=== PATIENT | male | born 1990 | race African-American/Black ===

== ENCOUNTER 2022-01-22 12:37 | Emergency (ER) | payer MEDICAID, OTHER ==
[~2022-01-22] VITALS: Ht 162.6 cm; Wt 61.2 kg
[2022-01-22 12:42] VITALS: BP 141/90
--- NOTE | 2022-01-22 13:05 | NUR ---
31 y/o Male BIB self for c/o N/V x 4 days. Pt states he smokes marijuana on a regular basis and stopped 4 days ago. AOX4, able to make needs known. Denies CP/SOB and diarrhea. Abd is soft and non-tender. + BS heard x4. Denies any blood in emesis. PmHx: Denies Allergies NKA Home meds: Denies
[2022-01-22] MEDS ORDERED: NACL 0.9% 1,000 ML IV ONE ×2 (13:10→14:25)
[2022-01-22] MEDS ORDERED: ONDANSETRON 4 MG/2 ML VIAL IVP ONE (13:10)
--- NOTE | 2022-01-22 13:25 | NUR ---
Pt encouraged to provide urine sample, pt states he is unable at this time and will try again once his IVF are completed.
[2022-01-22 13:27] LABS: BASOPHILS % (AUTO) 0.6 % (0.0-2.0); EOSINOPHILS % (AUTO) 0.1 % (0.0-4.0); HEMATOCRIT 48.8 % (36-52); HEMOGLOBIN 17.3 g/dL (12.0-18.0); LYMPHOCYTES # (AUTO) 2.3 K/uL (2.0-11.5); LYMPHOCYTES % (AUTO) 27.9 % (20.5-51.1); MEAN CORPUSCULAR HEMOGLOBIN 31 pg (27-31); MEAN CORPUSCULAR HGB CONC 35 g/dL (33-37); MEAN CORPUSCULAR VOLUME 86.3 fL (80-94); MONOCYTES # (AUTO) 0.8 K/uL (0.8-1.0); MONOCYTES % (AUTO) 9.4 % (1.7-9.3); PLATELET COUNT (AUTO) 184 K/uL (140-450); RED BLOOD CELL COUNT(AUTO) 5.66 MIL/uL (4.20-6.10); WHITE BLOOD COUNT (AUTO) 8.1 K/uL (4.8-10.8)
[2022-01-22 14:07] LABS: ALBUMIN 5.1 g/dL (3.4-5.0); ANION GAP 20.6 (8-16); CREATININE 1.9 mg/dL (0.6-1.3); POTASSIUM 3.6 mmol/L (3.5-5.1)
[2022-01-22 14:48] LABS: BARBITURATE, URINE NEGATIVE ng/ml (NEG <=200); BENZODIAZEPINE, URINE NEGATIVE ng/mL (NEG <=200); CANNABINOID, URINE POSITIVE ng/mL (NEG <=50); COCAINE, URINE NEGATIVE ng/mL (NEG <=300); OPIATE, URINE NEGATIVE ng/mL (NEG <=2000); PHENCYCLIDINE SCREEN,URINE NEGATIVE ng/mL (NEG <=25)
[2022-01-22] MEDS ORDERED: ONDANSETRON 4 MG ODT ONE (15:07)
[2022-01-22] MEDS ORDERED: ONDANSETRON 4 MG ODT PO ONE (15:10)
--- NOTE | 2022-01-22 15:10 | NUR ---
Preparing pt for D/C and pt requested another dose of zofran to prevent further nausea. Dr Avila made aware.
[2022-01-22 15:20] VITALS: BP 139/104
--- NOTE | 2022-01-22 15:20 | NUR ---
Patient discharged with v/s stable. Written and verbal after care instructions given and explained. Patient verbalized understanding with teachback. Ambulatory with steady gait. All questions addressed prior to discharge. Advised to follow up with PMD.
[2022-01-23] MEDS ORDERED: ONDA-188 SL (16:45)
== END 2022-01-22 15:20 | disposition home or self-care (01) ==
LOC: MED 12:37
DX: R11.2 Nausea with vomiting, unspecified (principal); E86.0 Dehydration; F12.90 Cannabis use, unspecified, uncomplicated
CPT/HCPCS: 36415; 80053; 80305; 81002; 85025; 96361; 96374; 99283; J2405; J7030; Q0162